=== PATIENT | male | born 1950 | race Caucasian/White ===

== ENCOUNTER 2020-04-19 09:41 | Outpatient (CLI) | payer OTHER ==
--- NOTE | 2020-04-19 10:04 | RAD ---
EXAM: Two views chest PROVIDED CLINICAL HISTORY: Dyspepsia and weight loss. GERD. COMPARISON: None FINDINGS: Cardiac silhouette and pulmonary vasculature are within normal limits. The lungs are clear. The osse ous structures have a normal appearance. IMPRESSION: No acute cardiopulmonary process.
== END 2020-04-19 09:42 | disposition home or self-care (01) ==
LOC: BICRAD 09:41
PROVIDERS: ATTEND Internal Medicine Gastroenterology
DX: K21.9 Gastro-esophageal reflux disease without esophagitis (principal); R63.4 Abnormal weight loss; R10.13 Epigastric pain; Z86.010 Personal history of colon polyps
CPT/HCPCS: 71046; 80053; 83516; 85025

== ENCOUNTER 2020-05-12 07:32 | Outpatient (CLI) | payer OTHER ==
[2020-05-12] MEDS ORDERED: Iopamidol-370 76% 500 ML 1 ML ONE (10:33)
--- NOTE | 2020-05-12 11:26 | CT ---
CT ABDOMEN AND PELVIS WITH IV CONTRAST: Oral contrast administered. Multiplanar reconstruction. INDICATION: Abdominal pain and weight loss. COMPARISON: No comparison. FINDINGS: Lung bases clear. Review of the liver reveals intra- and extrahepatic biliary duct dilatation. The gallbladder is dist ended and there is a suggestion of focal density in the gallbladder fundus along the wall of the gall bladder which may represent a small gallstone. Cholesterol stone will not be apparent on CT and othe r stones may be present. The common duct is dilated to the head of the pancreas and there is a suggestion of a filling defect near the ampulla which measures in the 10 mm range. This could represent common duct stone or mucosa l lesion. The pancreas is otherwise unremarkable. There is associated dilatation of the pancreatic duct. The spleen is unremarkable with granulomatous calcifications noted. Stomach and duodenum unremarkable. Adrenal glands normal. Kidneys unremarkable. There is a small nonobstructing calculus in the lower pole collecting structur es of the left kidney measuring in the 2-3 mm range. No hydronephrosis or ureteral obstruction. The urinary bladder shows a small diverticulum extending from the bladder flow. Bladder wall thickness is normal. Small bowel loops are normal caliber. Large volume stool throughout the colon consistent with a history of constipation. Aorta is normal caliber with mild atherosclerotic calcification. No adenopathy. No free fluid. Images through the pelvis show mild prostatic hypertrophy. Osseous structures unremarkable with degenerative spine changes. The vertebral bodies maintain heigh t and alignment. Degenerative disk changes seen at all visualized levels. IMPRESSION: 1. Intra- and extrahepatic biliary duct dilatation. There is a suggestion of filling defect in the common duct near the ampulla. The gallbladder is distended and there is density in the gallbladder f undus which may represent stone or polyp. Correlate with gallbladder ultrasound to rule out choleste rol gallstones which will not be seen on CT. 2. Nonacute findings as described above. POS: AH
== END 2020-05-12 07:33 | disposition home or self-care (01) ==
LOC: BICCT 07:32
PROVIDERS: ATTEND Internal Medicine Gastroenterology
DX: R10.9 Unspecified abdominal pain (principal); R63.4 Abnormal weight loss; K83.8 Other specified diseases of biliary tract
CPT/HCPCS: 74177; Q9967

== ENCOUNTER 2020-05-14 05:29 | Outpatient (CLI) | payer OTHER ==
[2020-05-15 14:45] LABS: SARS-CoV-2 MS2 Positive; SARS-CoV-2 N Gene Negative; SARS-CoV-2 S Gene Negative; SARS-CoV-2 by NAA Not Detected (NotDetected); SARS-CoV-2 orf1ab Negative
== END 2020-05-14 05:30 | disposition home or self-care (01) ==
LOC: LABBT 05:29
PROVIDERS: ATTEND Internal Medicine Gastroenterology
DX: Z01.812 Encounter for preprocedural laboratory examination (principal); Z11.59 Encounter for screening for other viral diseases
CPT/HCPCS: 87635; U0003

== ENCOUNTER 2020-05-18 08:05 | Day surgery (SDC) | payer OTHER ==
[2020-05-14 12:37] VITALS: BMI 21.0
[2020-05-18] MEDS ORDERED: Iothalamate Meglumine 60% 50 ML VIAL FS ONE (10:09)
[2020-05-18] MEDS ORDERED: Indomethacin 50 MG SUPP ONE (10:09)
[2020-05-18] MEDS ORDERED: Fentanyl 100 MCG/2 ML VIAL ONE (10:17)
[2020-05-18] MEDS ORDERED: Rocuronium Bromide 10 MG/ML (10ML VIAL) ONE (10:20)
[2020-05-18] MEDS ORDERED: Lidocaine 1% PF 5 ML VIAL ONE (10:20)
[2020-05-18] MEDS ORDERED: Glycopyrrolate 0.2 MG/ML 5 ML SYRINGE ONE (10:20)
[2020-05-18] MEDS ORDERED: PROPOFOL 200 MG/20 ML VIAL ONE (10:20)
[2020-05-18] MEDS ORDERED: Levofloxacin 500 mg/D5W 100 ml Premix Bag ONE (10:25)
--- NOTE | 2020-05-18 11:27 | RAD ---
EXAM: ERCP HISTORY: Common bile duct stone removal COMPARISON: CT abdomen/pelvis 05/12/2020 FINDINGS: Limited intraoperative fluoroscopic views were taken during a an ERCP. The common bile duct is enlarged. There appears to be a filling defect in the distal aspect of the co mmon bile duct on the initial images. This is eventually removed and not seen on the latter images. No leakage from the common bile duct. There is mild intrahepatic biliary dilatation IMPRESSION: ERCP for removal of common bile duct stone
--- NOTE | 2020-05-18 15:07 | OP ---
DATE OF PROCEDURE: 05/18/2020 PROCEDURE PERFORMED: Endoscopic retrograde cholangiopancreatography with sphincterotomy and balloon sweep of the bile duct. PREOPERATIVE DIAGNOSES: Choledocholithiasis by CT scan and elevated alkaline phosphatase in liver tests. DESCRIPTION OF PROCEDURE: Informed consent was obtained from the patient. He was sedated with general anesthesia and placed in the prone position. The duodenoscope was advanced easily to the second portion of the duodenum. The ampulla was identified and had drainage of clear yellow bile. The ampulla itself appeared unremarkable. However, there was a periampullary diverticulum that had a fairly small mouth, but was deep. The common bile duct was selectively cannulated easily on the first attempt. Cholangiogram shows dilation of the common bile duct to 10 mm. There appears to be a filling defect in the distal common bile duct. The intrahepatic ducts were unremarkable. There was mild dilation of the extrahepatic ducts. There appeared to be filling defects in the gallbladder. A complete sphincterotomy was performed with good drainage of contrast and bile. A 12 mm balloon was passed through the entire common bile duct and hepatic duct with occlusion cholangiogram. The balloon passes easily through the sphincterotomy without resistance. There was no stone in the bile duct. The filling defect actually appears to be at the apex of the duodenal diverticulum. There was no actual stricture in this area and the balloon passes through it very easily. Again, occlusion cholangiogram was clear. There was rapid drainage of bile and contrast as the balloon passes out of the duct. IMPRESSION: 1. Unremarkable ampulla with good bile flow. There was a periampullary diverticulum, which appears to be causing the area of the filling defect noted on initial cholangiogram at the apex of the diverticulum. 2. The common bile duct was dilated to 10 mm along with the common hepatic duct. The intrahepatic ducts were unremarkable. There was initially a question of a filling defect in the distal common bile duct. However, after passage of the balloon fully inflated to 12 mm with occlusion cholangiogram, there was no stone and no filling defect in this area. 3. Complete sphincterotomy was performed. 4. Balloon sweep of the bile duct and occlusion cholangiogram confirmed the duct to be clear. RECOMMENDATIONS: 1. Referral for cholecystectomy in light of the filling defect noted in the gallbladder by CT scan, which could be mucosal or stone related and also multiple apparent stones by cholangiogram in the gallbladder. 2. Repeat the trend of the liver tests in the office at the time of followup next week. If the alkaline phosphatase remains significantly elevated, then consider endoscopic ultrasound in the future. Job ID: [id number]
== END 2020-05-18 13:47 | disposition home or self-care (01) ==
LOC: SDC 08:05
PROVIDERS: ATTEND Internal Medicine Gastroenterology
PROC: 0F798ZZ Dilation of Common Bile Duct, Via Natural or Artificial Opening Endoscopic (ICD-10-PCS; principal; 2020-05-18)
PROC: 0FC98ZZ Extirpation of Matter from Common Bile Duct, Via Natural or Artificial Opening Endoscopic (ICD-10-PCS; principal; 2020-05-18)
DX: K80.50 Calculus of bile duct without cholangitis or cholecystitis without obstruction (principal); Z79.899 Other long term (current) drug therapy
CPT/HCPCS: 74330; J1956; J2704; J3010

== ENCOUNTER 2020-06-04 07:43 | Outpatient (CLI) | payer OTHER ==
[2020-06-04 14:10] LABS: #Eosinphils 0.1 thou/uL (0.0-0.7); #Lymphocytes 1.3 thou/uL (1.20-3.40); #Monocytes 0.6 thou/uL (0.11-0.59); #Neutrophils 3.6 thou/uL (1.40-6.50); %Basophils 0.1 % (0.0-1.0); %Eosinophils 1.7 % (0.0-10.0); %Lymphocytes 23.6 % (21.0-51.0); %Monocytes 11.3 % (0.0-10.0); %Neutrophils 63.2 % (42.0-75.0); Hemoglobin 13.8 g/dL (14.0-18.0); Mean Corpuscular HGB CONC 33.8 g/dL (32.0-36.0); Mean Corpuscular Hemoglobin 32.9 pg (27.0-31.0); Mean Corpuscular Volume 97.4 fL (78.0-98.0); Mean Platelet Volume 8.2 fL (7.4-10.4); Platelet Count 221 thou/uL (130-400); White Blood Cell (WBC) Count 5.6 thou/uL (4.8-10.8)
[2020-06-04 14:55] LABS: ALT (SGPT) 38 U/L (8-55); AST (SGOT) 33 U/L (5-34); Albumin 3.9 g/dL (3.4-4.8); Alkaline Phosphatase 215 U/L (40-110); Anion Gap 14 mmol/L (10-20); BUN (Urea Nitrogen) 9 mg/dL (8.4-25.7); Bilirubin, Direct 0.5 mg/dL (0.1-0.3); Bilirubin, Total 0.6 mg/dL (0.2-1.2); Calc. Creatinine Clearance 0 mL/min (70-130); Calcium 8.5 mg/dL (7.8-10.44); Carbon Dioxide 24 mmol/L (23-31); Chloride 98 mmol/L (98-107); Estimated GFR-MDRD Greater than 90; Glucose 98 mg/dL (80-115); Potassium 4.9 mmol/L (3.5-5.1); Protein, Total 6.7 g/dL (5.8-8.1); Sodium 131 mmol/L (136-145)
[2020-06-05 14:04] LABS: SARS-CoV-2 MS2 Positive; SARS-CoV-2 N Gene Negative; SARS-CoV-2 S Gene Negative; SARS-CoV-2 by NAA Not Detected (NotDetected); SARS-CoV-2 orf1ab Negative
== END 2020-06-04 07:44 | disposition home or self-care (01) ==
LOC: LABBT 07:43
PROVIDERS: ATTEND Surgery
DX: Z01.812 Encounter for preprocedural laboratory examination (principal); Z20.828 Contact with and (suspected) exposure to other viral communicable diseases
CPT/HCPCS: 80048; 80076; 85025; 87635; U0003

== ENCOUNTER 2024-03-19 14:19 | Outpatient (CLI) | payer MEDICARE ==
[2024-03-19 15:39] LABS: #Basophils 0.03 10x3/uL (0.0-0.2); #Eosinphils 0.21 10x3/uL (0.0-0.5); #Neutrophils 3.14 10x3/uL (1.5-8.4); %Basophils 0.5 % (0.0-2.0); %Eosinophils 3.5 % (0.0-6.0); %Lymphocytes 31.7 % (18.0-47.0); %Monocytes 11.7 % (0.0-10.0); %Neutrophils 52.3 % (40.0-75.0); Hematocrit 42.3 % (38.8-50.0); Hemoglobin 14.2 g/dL (13.5-17.5); Mean Corpuscular HGB CONC 33.6 g/dL (32.0-36.0); Mean Corpuscular Hemoglobin 32.2 pg (27.0-33.0); Mean Corpuscular Volume 95.9 fL (81.2-95.1); Mean Platelet Volume 10.2 fL (7.4-10.4); Platelet Count 204 10x3/uL (150-450); RBC Distribution Width 12.3 % (11.5-14.5); Red Blood Cell (RBC) Count 4.41 10x6/uL (4.32-5.72)
[2024-03-19 15:40] LABS: Prothrombin Time 10.7 sec (9.5-12.1)
[2024-03-19 15:46] LABS: Anion Gap 13 mmol/L (10-20); BUN (Urea Nitrogen) 20 mg/dL (8.4-25.7); Calc. Creatinine Clearance 0 mL/min (70-130); Calcium 9.1 mg/dL (7.8-10.44); Carbon Dioxide 27 mmol/L (23-31); Chloride 106 mmol/L (98-107); Estimated GFR 92; Glucose 89 mg/dL (83-110); Potassium 4.8 mmol/L (3.5-5.1); Sodium 141 mmol/L (136-145)
== END 2024-03-19 14:20 | disposition home or self-care (01) ==
LOC: LABBT 14:19
PROVIDERS: ATTEND Orthopaedic Surgery
DX: Z01.818 Encounter for other preprocedural examination (principal)
CPT/HCPCS: 80048; 85025; 85610; 93005; 93010

== ENCOUNTER 2024-03-26 05:29 | Observation (INO) | payer MEDICARE ==
[2024-03-19 14:44] VITALS: BMI 21.4
[2024-03-26] MEDS ORDERED: Sodium Chloride 0.9% 100 ML ONE ×2 (06:28→06:55)
[2024-03-26] MEDS ORDERED: Tranexamic Acid 1,000 MG/10 ML VIAL ONE (06:28)
[2024-03-26] MEDS ORDERED: Vancomycin 1 GM/200 ML (FROZEN) BAG ONE (06:28)
[2024-03-26] MEDS ORDERED: Midazolam HCl 2 mg/2 ml Vial ONE (06:48)
[2024-03-26] MEDS ORDERED: Ropivacaine 0.5% HCl/PF (150 MG/30 ML VIAL) ONE (06:50)
[2024-03-26] MEDS ORDERED: CEFAZOLIN 2 GM VIAL ONE (06:54)
[2024-03-26] MEDS ORDERED: PROPOFOL 20 ML ONE (07:16)
[2024-03-26] MEDS ORDERED: fentaNYL PF 100 MCG/2 ML SYRINGE ONE (07:16)
[2024-03-26] MEDS ORDERED: Rocuronium Bromide 10 MG/ML (10ML VIAL) ONE (07:31)
[2024-03-26] MEDS ORDERED: PHENYLEPHRINE-NS 100 MCG/ML 10 ML SYRINGE ONE (07:31)
[2024-03-26] MEDS ORDERED: Ketorolac Tromethamine 30 MG (1 mL) VIAL ONE (07:49)
[2024-03-26] MEDS ORDERED: ePHEDrine Sulfate 50 MG/10 ML VIAL ONE (07:49)
[2024-03-26] MEDS ORDERED: Ondansetron PF 4 MG/2 ML Vial ONE (07:49)
[2024-03-26] MEDS ORDERED: Dexamethasone 4 mg/ml Vial ONE (07:49)
[2024-03-26] MEDS ORDERED: fentaNYL 50 mcg/mL 1 mL Vial SLOW IVP PRN (09:07)
[2024-03-26] MEDS ORDERED: Glycopyrrolate 0.2 MG/ML 5 ML SYRINGE ONE (09:12)
[2024-03-26] MEDS ORDERED: NEOSTIGMINE 3 MG/3 ML SYR 3 MG/3 ML SYRINGE ONE (09:12)
[2024-03-26] MEDS ORDERED: Ropivacaine 0.2% 550 ML 550 ML NERVE BLCK SCH (09:15)
[2024-03-26] MEDS ORDERED: Ondansetron PF 4 MG/2 ML Vial IVP PRN (09:15)
[2024-03-26] MEDS ORDERED: Promethazine HCl 25 MG/ML VIAL IM PRN (09:15)
[2024-03-26] MEDS ORDERED: Zolpidem Tartrate 5 MG TAB PO PRN (09:15)
[2024-03-26] MEDS ORDERED: HYDROcodone/Acetaminophen 10/325 mg Tablet PO PRN ×2 (09:30)
[2024-03-26] MEDS ORDERED: traMADol HCl 50 MG TAB PO PRN (09:30)
[2024-03-26] MEDS ORDERED: Acetaminophen 325 MG TAB PO PRN (09:30)
[2024-03-26] MEDS ORDERED: Morphine 2 MG/ML VIAL SLOW IVP PRN (09:30)
[2024-03-26] MEDS ORDERED: diphenhydrAMINE 50 MG CAP PO PRN (09:30)
[2024-03-26] MEDS: Lactated Ringer's 1,000 ML IV SCH (11:54)
[2024-03-26] MEDS: Ketorolac Tromethamine 30 MG (1 mL) VIAL IVP SCH (12:31)
[2024-03-26] MEDS: CEFAZOLIN 2 GM in Sodium Chloride 0.9% 100 ML IVPB SCH (14:41)
[2024-03-26] MEDS: Potassium Chloride 8 MEQ TAB PO SCH (20:30)
[2024-03-26] MEDS: Gabapentin 400 MG CAP PO SCH (20:30)
[2024-03-26] MEDS: Lisinopril 5 MG TAB PO SCH (20:32)
[2024-03-26] MEDS: hydrOXYzine 25 MG TAB PO SCH (20:32)
[2024-03-26] MEDS: Magnesium Oxide 250 MG TAB PO SCH (20:32)
[2024-03-26] MEDS: Atorvastatin Calcium 10 MG TAB PO SCH (20:32)
[2024-03-27 08:18] VITALS: BP 155/83; TEMP 98.7
[2024-03-27] MEDS: Folic Acid 1 MG TAB PO SCH (08:23)
[2024-03-27] MEDS: Cyanocobalamin (Vitamin B-12) 1,000 MCG TAB PO SCH (08:23)
[2024-03-27] MEDS: Aspirin 81 mg Enteric Coated Tablet PO SCH (08:23)
[2024-03-27] MEDS: Pantoprazole DR 40 MG TAB PO SCH (08:23)
[2024-03-27] MEDS ORDERED: TURMERIC ROOT PO SCH (09:00)
== END 2024-03-27 11:17 | disposition home or self-care (01) ==
LOC: SDC 05:29 → SURG B 11:31
PROVIDERS: ADMIT Orthopaedic Surgery; ATTEND Orthopaedic Surgery
PROC: 0RRJ00Z Replacement of Right Shoulder Joint with Reverse Ball and Socket Synthetic Substitute, Open Approach (ICD-10-PCS; principal; 2024-03-26)
PROC: 3E0T3BZ Introduction of Anesthetic Agent into Peripheral Nerves and Plexi, Percutaneous Approach (ICD-10-PCS; 2024-03-26)
DX: M75.121 Complete rotator cuff tear or rupture of right shoulder, not specified as traumatic (principal); M19.011 Primary osteoarthritis, right shoulder; S46.211A Strain of muscle, fascia and tendon of other parts of biceps, right arm, initial encounter; I10 Essential (primary) hypertension; Z90.49 Acquired absence of other specified parts of digestive tract; Z79.899 Other long term (current) drug therapy; Z79.82 Long term (current) use of aspirin; X58.XXXA Exposure to other specified factors, initial encounter
CPT/HCPCS: 23472; 64415; 97110; 97116; 97535; A4306; C1713 ×4; C1776 ×4; J1100; J1885 ×2; J2250; J2405; J2704; J2795 ×2; J3370; J3490; J7120

== ENCOUNTER 2024-08-25 14:12 | Outpatient (CLI) | payer MEDICARE | END 2024-08-25 14:13 | disposition home or self-care (01) | LOC: SCSMRI 14:12 | PROVIDERS: ATTEND Orthopaedic Surgery | DX: D17.79 Benign lipomatous neoplasm of other sites (principal); M19.012 Primary osteoarthritis, left shoulder; M25.412 Effusion, left shoulder; M25.712 Osteophyte, left shoulder; M75.112 Incomplete rotator cuff tear or rupture of left shoulder, not specified as traumatic | CPT/HCPCS: 36415; 82565 ==

== ENCOUNTER 2024-09-18 08:51 | Outpatient (CLI) | payer MEDICARE ==
[2024-09-18 11:01] LABS: #Basophils 0.03 10x3/uL (0.0-0.2); %Basophils 0.5 % (0.0-1.0); %Eosinophils 1.8 % (0.0-10.0); %Lymphocytes 19.4 % (21.0-51.0); %Monocytes 10.5 % (0.0-10.0); %Neutrophils 67.5 % (42.0-75.0); Hemoglobin 14.7 g/dL (14.0-18.0); Mean Corpuscular Hemoglobin 30.9 pg (27.0-31.0); Mean Corpuscular Volume 96.8 fL (78.0-98.0); Mean Platelet Volume 9.9 fL (7.4-10.4); Platelet Count 218 10x3/uL (130-400); RBC Distribution Width 13.2 % (11.5-14.5); Red Blood Cell (RBC) Count 4.75 mill/uL (4.70-6.10)
[2024-09-18 11:14] LABS: INR-International Normal Ratio 0.9; Prothrombin Time 12.3 sec (12.0-14.7)
[2024-09-18 11:33] LABS: Anion Gap 12 mmol/L (10-20); BUN (Urea Nitrogen) 15 mg/dL (8.4-25.7); Calc. Creatinine Clearance 0 mL/min (70-130); Calcium 8.8 mg/dL (7.8-10.44); Carbon Dioxide 26 mmol/L (23-31); Chloride 105 mmol/L (98-107); Estimated GFR 90; Glucose 91 mg/dL (83-110); Potassium 4.2 mmol/L (3.5-5.1); Sodium 139 mmol/L (136-145)
== END 2024-09-18 08:52 | disposition home or self-care (01) ==
LOC: LABBT 08:51
PROVIDERS: ATTEND Orthopaedic Surgery
DX: Z01.818 Encounter for other preprocedural examination (principal); M75.102 Unspecified rotator cuff tear or rupture of left shoulder, not specified as traumatic
CPT/HCPCS: 80048; 85025; 85610; 87081; 93005; 93010

== ENCOUNTER 2024-09-25 05:37 | Observation (INO) | payer MEDICARE ==
[2024-09-18 09:53] VITALS: BMI 22.1
[2024-09-25] MEDS ORDERED: fentaNYL 50 mcg/mL 1 mL Vial ONE (06:26)
[2024-09-25] MEDS ORDERED: Ropivacaine 0.2% HCl/PF 20 ML ONE (06:27)
[2024-09-25] MEDS ORDERED: Midazolam HCl 2 mg/2 ml Vial ONE (06:27)
[2024-09-25] MEDS ORDERED: Lidocaine 1% (PF) 30 ML VIAL ONE (06:27)
[2024-09-25] MEDS ORDERED: Ropivacaine 0.5% HCl/PF (150 MG/30 ML VIAL) ONE (06:27)
[2024-09-25] MEDS ORDERED: CEFAZOLIN 2 GM VIAL ONE (07:03)
[2024-09-25] MEDS ORDERED: Vancomycin (BATCH) 1.5 GM/300 ML BAG ONE (07:06)
[2024-09-25] MEDS ORDERED: Sodium Chloride 0.9% 100 ML ONE (07:06)
[2024-09-25] MEDS ORDERED: Tranexamic Acid 1,000 MG/10 ML VIAL ONE (07:06)
[2024-09-25] MEDS ORDERED: PROPOFOL 20 ML ONE (07:16)
[2024-09-25] MEDS ORDERED: Rocuronium Bromide 10 MG/ML (10ML VIAL) ONE (07:32)
[2024-09-25] MEDS ORDERED: PHENYLEPHRINE-NS 100 MCG/ML 10 ML SYRINGE ONE (07:32)
[2024-09-25] MEDS ORDERED: Ketorolac Tromethamine 30 MG (1 mL) VIAL ONE (07:42)
[2024-09-25] MEDS ORDERED: Dexamethasone 4 mg/ml Vial ONE (07:42)
[2024-09-25] MEDS ORDERED: Ondansetron PF 4 MG/2 ML Vial ONE (07:42)
[2024-09-25] MEDS ORDERED: ePHEDrine Sulfate 50 MG/10 ML VIAL ONE (08:01)
[2024-09-25] MEDS ORDERED: Ondansetron PF 4 MG/2 ML Vial IVP PRN ×2 (08:45→09:41)
[2024-09-25] MEDS ORDERED: fentaNYL 50 mcg/mL 1 mL Vial SLOW IVP PRN (08:45)
[2024-09-25] MEDS ORDERED: Zolpidem Tartrate 5 MG TAB PO PRN ×2 (08:45→09:41)
[2024-09-25] MEDS ORDERED: traMADol HCl 50 MG TAB PO PRN ×2 (08:45)
[2024-09-25] MEDS ORDERED: HYDROcodone/Acetaminophen 10/325 mg Tablet PO PRN ×2 (08:45)
[2024-09-25] MEDS ORDERED: Promethazine HCl 25 MG/ML VIAL IM PRN (08:45)
[2024-09-25] MEDS ORDERED: Ropivacaine 0.2% 550 ML 550 ML NERVE BLCK SCH (08:45)
[2024-09-25] MEDS ORDERED: Glycopyrrolate 0.2 MG/ML 5 ML SYRINGE ONE (08:59)
[2024-09-25] MEDS ORDERED: NEOSTIGMINE 3 MG/3 ML SYRINGE ONE (08:59)
[2024-09-25] MEDS ORDERED: Ondansetron ODT 4 MG TAB PO PRN (09:41)
[2024-09-25] MEDS ORDERED: diphenhydrAMINE 50 MG CAP PO PRN (09:41)
[2024-09-25] MEDS ORDERED: Methocarbamol 500 MG TAB PO PRN (09:41)
[2024-09-25] MEDS ORDERED: Acetaminophen 325 MG TAB PO PRN (09:41)
[2024-09-25] MEDS ORDERED: Methocarbamol 1 GM (10 mL) VIAL SLOW IVP PRN (09:41)
[2024-09-25] MEDS ORDERED: Bisacodyl 10 MG SUPP PR PRN (09:41)
[2024-09-25] MEDS ORDERED: Milk Of Magnesia 30 ML UDCUP PO PRN (09:41)
[2024-09-25] MEDS: Pantoprazole DR 40 MG TAB PO SCH (16:03)
[2024-09-25] MEDS: Lisinopril 5 MG TAB PO SCH ×2 (16:03→20:38)
[2024-09-25] MEDS: Ketorolac Tromethamine 30 MG (1 mL) VIAL IVP SCH (16:03)
[2024-09-25] MEDS: CEFAZOLIN 2 GM in Sodium Chloride 0.9% 100 ML IVPB SCH (16:05)
[2024-09-25] MEDS: Lactated Ringer's 1,000 ML IV SCH (16:05)
[2024-09-25] MEDS: Gabapentin 400 MG CAP PO SCH (18:23)
[2024-09-25] MEDS: Atorvastatin Calcium 10 MG TAB PO SCH (20:38)
[2024-09-25] MEDS: Potassium Chloride 8 MEQ TAB PO SCH (20:39)
[2024-09-25] MEDS: hydrOXYzine 25 MG TAB PO SCH (20:39)
[2024-09-26] MEDS: Pantoprazole DR 40 MG TAB PO SCH (09:05)
[2024-09-26 09:06] VITALS: TEMP 98.5
[2024-09-26 11:59] VITALS: BP 171/89
== END 2024-09-26 12:12 | disposition home or self-care (01) ==
LOC: SDC 05:37 → MSONC 09:41
PROVIDERS: ADMIT Orthopaedic Surgery; ATTEND Orthopaedic Surgery
PROC: 0RRK00Z Replacement of Left Shoulder Joint with Reverse Ball and Socket Synthetic Substitute, Open Approach (ICD-10-PCS; principal; 2024-09-25)
PROC: 0LS40ZZ Reposition Left Upper Arm Tendon, Open Approach (ICD-10-PCS; 2024-09-25)
PROC: 0HBCXZZ Excision of Left Upper Arm Skin, External Approach (ICD-10-PCS; 2024-09-25)
DX: M75.122 Complete rotator cuff tear or rupture of left shoulder, not specified as traumatic (principal); M19.012 Primary osteoarthritis, left shoulder; D17.79 Benign lipomatous neoplasm of other sites; M75.22 Bicipital tendinitis, left shoulder; H91.93 Unspecified hearing loss, bilateral; I10 Essential (primary) hypertension; Z87.891 Personal history of nicotine dependence; Z79.899 Other long term (current) drug therapy; Z98.890 Other specified postprocedural states
CPT/HCPCS: 11603; 23472; 24340; 64416; 97116; A4306; C1713 ×4; C1776 ×4; J1100; J1885 ×2; J2250; J2405; J2704; J2795 ×3; J3010; J3370; J7120; 88304